=== PATIENT | female | born 1985 | race Two or more races ===

== ENCOUNTER 2022-03-27 21:04 | Emergency (ER) | payer OTHER ==
[~2022-03-27] VITALS: Ht 165.1 cm; Wt 66.7 kg
[2022-03-27 21:16] VITALS: BP 122/54
--- NOTE | 2022-03-27 21:16 | NUR ---
TO BED AMBULATORY Addendum: 03/27/22 at 2124 by MEDGJ PT TO LOBBY TO A/W BED
--- NOTE | 2022-03-27 21:46 | NUR ---
PER ADMITTING [facility]BS AT [id number]
--- NOTE | 2022-03-27 22:14 | NUR ---
2146-- S/W MORRIS PT PATIENT LEFT WITHOUT BEING SEEN BY DR. CASTRO. NO FURTHER CARE PROVIDED FOR PATIENT.
== END 2022-03-27 21:46 | disposition left against medical advice (07) ==
LOC: MED 21:04
DX: R51.9 Headache, unspecified (principal); Z53.21 Procedure and treatment not carried out due to patient leaving prior to being seen by health care provider